=== PATIENT | male | born 2005 | race African-American/Black ===

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

== ENCOUNTER → 2025-01-29 | Outpatient (CLI) | payer MEDICAID | LOC: M OUTALCOH 08:27 | PROVIDERS: ATTEND Psychiatry & Neurology Psychiatry | DX: Z03.89 Encounter for observation for other suspected diseases and conditions ruled out (principal) ==